=== PATIENT | female | born 1955 | race African-American/Black ===

== ENCOUNTER 2018-02-20 09:47 | Emergency (ER) | payer MEDICAID ==
[~2018-02-20] VITALS: Ht 167.6 cm; Wt 90.7 kg
[2018-02-20] MEDS ORDERED: METFORMIN HCL500 M1 ORAL (10:01)
[2018-02-20] MEDS ORDERED: NORCO 5-325 TA1 EACH ORAL (10:19)
[2018-02-20] MEDS ORDERED: LIDODERM700 M1 TOPIC (10:24)
[2018-02-20] MEDS ORDERED: Norco 5mg/325mg tab ORAL ONE (10:30)
[2018-02-20] MEDS ORDERED: Ketorolac 30mg Inj IM ONE (10:30)
[2018-02-20 10:45] VITALS: BP 129/71
--- NOTE | 2018-02-20 13:16 | Emergency Room Report ---
History of Present Illness General Chief Complaint: Pain Source: Patient Present Illness HPI Patient has a history of chronic left shoulder pain. Patient states that she has had this condition for years. She gets occasional exacerbations. Patient states that she would like some pain medications because it's gotten worse again. Patient states that she left her pain medications at her other residents and she is visiting [place]. She denies any fever chest pain shortness of breath. Denies any trauma. Denies any chest pain leg pain leg swelling. Symptoms noted to moderate and worse with movement. No other modifying factors. No other associated signs and symptoms. No other complaints were noted. Allergies: Coded Allergies: No Known Allergies (Unverified , 02/20/18) Patient History Past Medical History: DM, HTN Past Surgical History: none Pertinent Family History: none Social History: Denies: smoking, alcohol use, drug use Last Menstrual Period: 35 yrs ago Reviewed Nursing Documentation: PMH: Agreed; PSxH: Agreed Nursing Documentation-PMH Hx Hypertension: Yes Hx Diabetes: Yes Review of Systems All Other Systems: negative except mentioned in HPI Physical Exam Vital Signs Date Time Temp Pulse Resp B/P (MAP) Pulse Ox O2 Delivery O2 Flow Rate FiO2 02/20/18 09:55 97.9 86 18 129/71 96 Room Air 97.9 Sp02 EP Interpretation: reviewed, normal General Appearance: normal inspection, well appearing, no apparent distress, alert Head: atraumatic Eyes: bilateral eye normal inspection ENT: normal ENT inspection, hearing grossly normal, normal voice Neck: normal inspection, full range of motion, supple, no bony tend Respiratory: normal inspection, lungs clear, normal breath sounds, no respiratory distress, no retraction, no wheezing Cardiovascular #1: regular rate, rhythm, no edema Gastrointestinal: normal inspection, normal bowel sounds, non tender, soft, no guarding, no hernia Genitourinary: no CVA tenderness Musculoskeletal: normal inspection, back normal, normal range of motion, other - tender left shoulder Neurologic: normal inspection, alert, responsive, speech normal Psychiatric: normal inspection, judgement/insight normal, mood/affect normal Skin: normal inspection, normal color, no rash Medical Decision Making Diagnostic Impression: Primary Impression: Shoulder pain, left ER Course Patient presents emergency department today complaint tenderness in the left shoulder. Differential instructions cofactors location versus strain. Given patient's presentation and the fact that this is been chronic I felt the patient would benefit from pain medications. Patient was given injection of Toradol and Doswell. Patient felt better. Patient was given procedure for pain medications.Patient is advised to follow up with primary doctor in 2-3 days and return the emergency room for any worsening symptoms and as needed. Last Vital Signs Date Time Temp Pulse Resp B/P (MAP) Pulse Ox O2 Delivery O2 Flow Rate FiO2 02/20/18 10:45 97.9 18 129/71 96 Room Air 208.2 02/20/18 09:55 86 Status: improved Disposition: HOME, SELF-CARE Condition: Stable Scripts Lidocaine (Lidoderm) 1 Each Adh..patch 1 PATCH TOPIC DAILY, #7 PATCH 0 Refills Patch(es) may remain in place for up to 12 hours in any 24-hour period. Prov: Tate Wei MD 02/20/18 Hydrocodone Bit/Acetaminophen 5-325* (NORCO 5-325*) 1 Each Tablet 1 TAB ORAL Q6H PRN for For Pain, #10 TAB 0 Refills Prov: Tate Wei MD 02/20/18 Referrals: [facility],REFERRING (PCP) Patient Instructions: Shoulder Pain Tate Wei MD Feb 20, 2018 13:16
== END 2018-02-20 10:45 | disposition home or self-care (01) ==
LOC: EMR 10:23
DX: M25.512 Pain in left shoulder (principal); I10 Essential (primary) hypertension; E11.9 Type 2 diabetes mellitus without complications
CPT/HCPCS: 96372; 99284; J1885